=== PATIENT | male | born 1990 | race Asian ===

== ENCOUNTER 2017-10-16 15:04 | Emergency (ER) | payer OTHER ==
[~2017-10-16] VITALS: Ht 172.7 cm; Wt 77.1 kg
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
[2017-10-16] MEDS ORDERED: ACETAMINOPHEN ES 500 MG TABLET ONE (15:57)
[2017-10-16] MEDS ORDERED: ACETAMINOPHEN 325 MG TABLET PO ONE (16:00)
[2017-10-16 17:52] VITALS: BP 118/60
== END 2017-10-16 17:53 | disposition home or self-care (01) ==
LOC: ER 15:05
DX: S80.212A Abrasion, left knee, initial encounter (principal); M25.532 Pain in left wrist; V29.9XXA Motorcycle rider (driver) (passenger) injured in unspecified traffic accident, initial encounter; Y93.89 Activity, other specified; Y92.410 Unspecified street and highway as the place of occurrence of the external cause; Y99.8 Other external cause status
CPT/HCPCS: 72100; 73110; 73564 ×2; 99284; A4606; A6402; Z7610